=== PATIENT | male | born 1995 | race Caucasian/White ===

== ENCOUNTER 2024-10-26 22:54 | Emergency (ER) | payer OTHER ==
[~2024-10-26] VITALS: Ht 180.3 cm; Wt 86.4 kg
[2024-10-26 23:00] VITALS: BP 144/87; PULSE 72; RESP 22; TEMP 98; O2SAT 98
[2024-10-27] MEDS ORDERED: LORazepam 2 MG/ML VIAL IM ONE (00:15)
== END 2024-10-27 02:03 | disposition home or self-care (01) ==
LOC: EMS 10-27 02:03
DX: F41.9 Anxiety disorder, unspecified (principal); F45.8 Other somatoform disorders; I10 Essential (primary) hypertension; F12.90 Cannabis use, unspecified, uncomplicated; Z91.030 Bee allergy status; Z91.013 Allergy to seafood
CPT/HCPCS: 99283; J2060